=== PATIENT | female | born 1985 | race Caucasian/White ===

== ENCOUNTER 2022-02-19 10:29 | Outpatient (CLI) | payer OTHER, SELFPAY ==
[2022-02-19 11:36] LABS: Hematocrit 31.5 % (37.0-47.0); Hemoglobin 10.2 g/dL (12.0-15.0); Mean Corpuscular HGB Conc 32.4 g/dl (32-36); Mean Corpuscular Hemoglobin 30.1 pg (26-34); Mean Corpuscular Volume 92.9 fl (80-100); Mean Platelet Volume 11.4 fl (7.4-10.4); Platelet Count Result 153 k/mm3 (150-375); Red Blood Count 3.39 M/mm3 (4.2-5.4); Red Cell Distribution Width 13.1 % (11.5-14.5)
[2022-02-19 13:47] LABS: Rapid Plasma Reagin Non-Reactive (NonReactive)
== END 2022-02-19 10:30 | disposition home or self-care (01) ==
LOC: ANHLAB 10:34
PROVIDERS: PCP Obstetrics & Gynecology; Referring Provider Obstetrics & Gynecology; Visit Provider Obstetrics & Gynecology
DX: Z01.818 Encounter for other preprocedural examination (principal)
CPT/HCPCS: 36415; 85027; 86592; 86850; 86900; 86901

== ENCOUNTER 2022-02-20 10:16 | Inpatient (IN) | payer OTHER, SELFPAY ==
--- NOTE | 2022-01-28 15:03 | PC.NURSE ---
verified with OR schedule and patient--C/S on 02/20/22 at 1200 Patient given requisition for lab drawn on 02/19/22
[2022-02-20] VITALS (54 sets, daily range): BP systolic 112–153; BP diastolic 51–97; PULSE 68–129; RESP 13–20; TEMP 36–36.6; O2SAT 97–100; BMI 27.5
--- NOTE | 2022-02-20 10:46 | LDADM ---
This patient, Escobar Avila, was admitted to Labor/Delivery/Recovery 120 on 02/20/22 at 10:16. Plans for labor, pain management and were discussed with patient. Patient/family oriented to hospital policies and general routines including ID bracelet, bed and alarms, visiting hours, pain management, procedures, bathroom and other care routines, personal items, smoking policy, room service/diet and guest tray routines, infant security routines, and visiting hours. Patient/Family are encouraged to report perceived risks to care and to ask questions if they do not understand what they are told or what they should do. See OBIX for further documentation.
[2022-02-20] MEDS: LACTATED RINGERS 1,000 ML 125 ML IV CONT (11:03)
--- NOTE | 2022-02-20 11:28 | P.PNAN_ITS ---
Anes - Initial Pre Proc Eval Procedure: Operation Date: 02/20/22 12:00 Proposed Procedures p Repeat Section - Temo John MD Date/Time: 02/20/22 11:28 Surgeon: Temo John MD Pre Op Diagnosis: c/s Patient Data Age: 36 Gender: F Height: 1.65 m Weight: 75 kg Last Vital Signs Temp 36.6 C 02/20/22 11:04 Pulse 91 02/20/22 11:16 BP 124/56 L 02/20/22 11:16 O2 Del Method Room Air 02/20/22 10:45 Allergies Allergy/AdvReac Type Severity Reaction Status Date / Time No Known Allergies Allergy Verified 01/28/22 14:44 Patient hx anesthesia problems: none Family hx anesthesia problems: none Results Review: All pre-operative results and documents have been reviewed as part of the pre- operative evaluation. FORMERLY [facility], [facility] Surgical History Surgical History (Updated 02/20/22 @ 11:29 by Joshua Cartagena MD) History of section Family History Family History Mother Diabetes type 2, controlled Social History Social History Smoking status: Never smoker Substance use: never Lack of Transportation: No Lack of Food: Never True Current Housing: I Have Housing Concerned About Future Housing: No Difficulty Paying Gas/Electric Bills: No Difficulty Paying for Meds: No Currently Unemployed: No Education: Bachelor's Degree Difficulty w/ Childcare or Family Care: No Spiritual care concerns: No Anes - Eval Final PreProcedure Day of Procedure 02/20/22 11:28 Patient weight: overweight Heart: regular rate and rhythm Lungs: clear to auscultation Airway: Mallampati scale class II Neurological: alert and oriented Last oral intake: >/= 8 hours ASA classification: II Emergent: no Anesthetic plan: proceed Anesthesia type and monitoring: regional spinal and standard monitoring Results Review: All pre-operative results and documents have been reviewed as part of the pre- operative evaluation. Informed Consent: The patient's anesthetic plan and its attendant risks and benefits were discussed with the patient/family/POA. Questions were solicited and answers p rovided to the satisfaction of the patient/family/POA.
--- NOTE | 2022-02-20 12:12 | PM.IMHP ---
H&P: HPI History of Present Illness Date/Time: 02/20/22 12:12 Chief Complaint: Here for repeat c section. Narrative: 36 y/o at 39 1/7 weeks with prior , desiring repeat . GBS pos. Review of Systems Review of Systems: All systems reviewed & are unremarkable except as noted in HPI and below PMFSH Surgical History Surgical History (Updated 02/20/22 @ 12:15 by Temo John MD) History of section Family History Family History Mother Diabetes type 2, controlled Social History Social History Smoking status: Never smoker Substance use: never Lack of Transportation: No Lack of Food: Never True Current Housing: I Have Housing Concerned About Future Housing: No Difficulty Paying Gas/Electric Bills: No Difficulty Paying for Meds: No Currently Unemployed: No Education: Bachelor's Degree Difficulty w/ Childcare or Family Care: No Spiritual care concerns: No Meds Home Medications and Allergies Allergies Allergy/AdvReac Type Severity Reaction Status Date / Time No Known Allergies Allergy Verified 01/28/22 14:44 Vital Signs Vital Signs - 24 hr 02/20/22 10:36 02/20/22 11:01 02/20/22 11:16 Temperature Pulse Rate 96 108 H 91 Blood Pressure 126/94 H 113/97 H 124/56 L Oxygen Delivery 02/20/22 11:04 02/20/22 11:31 02/20/22 11:46 Temperature 36.6 C Pulse Rate 85 87 Blood Pressure 112/51 L 114/71 Oxygen Delivery 02/20/22 10:45 Temperature Pulse Rate Blood Pressure Oxygen Delivery Room Air Exam Const: Orientation/consciousness: patient oriented x3 Other: Well-developed, well-nourished female in no acute distress. Neck: Thyroid: thyroid normal Lymphatic: no lymphadenopathy noted (in neck, axilla or inguinal nodes) Resp: Effort & Inspection: normal respiratory effort Auscultation: clear to auscultation bilaterally Cardio: Rate: regular rate Rhythm: regular rhythm Heart sounds: S1 normal heart sound present and S2 normal heart sound present GI: Other: ABD: Soft, nontender, gravid. FH 36 cm. FHR 150 bpm. : General: Yes no CVA tenderness Other: Cervix closed / 50 Back/Spine/Pelvis: Back: no CVA tenderness Skin: General skin exam: normal color and no rashes or lesions noted Neuro: General: patient oriented x3 Extrem: Other: Extremities: nontender with no edema Psych: Mental Status: mental status grossly normal Affect: normal affect Assessment and Plan Assessment and plan (1) Term : Code(s): Z34.90 - Encounter for supervision of normal , unspecified, unspecified trimester Status: Acute Assessment and Plan: A: IUP at 39 1/7 weeks with prior . P: Offered repeat . She understands risks of surgery to include risks of anesthesia, risks of pain, infection, bleeding, blood products, thromboembolic phenomena and damage to adjacent structures such as bowel, bladder, ureters, blood vessels and nerves. She understands all these risks and elects to proceed with surgery. (2) History of section: Code(s): Z98.891 - History of uterine scar from previous surgery Status: Acute
[2022-02-20] MEDS: ceFAZolin 2 GM/D5W 50 ML 2 GM/50 ML BAG IVPB (12:16)
--- NOTE | 2022-02-20 12:16 | WPDHPUPDATE1 ---
History and Physical Update Update Date/Time: 02/20/22 12:16 History and Physical has been reviewed, including an updated exam of the patient. There are NO changes in the patient's condition. Risks, benefits, and alternatives have been discussed and questions answered. Patient agrees to proceed with procedure.
--- NOTE | 2022-02-20 13:13 | PM.OBPRVD ---
OB - Delivery Note Procedure Delivery date: 02/20/22 Procedure: Procedures Operation Date: 02/20/22 12:00 <No data on this case meets the specified criteria> Repeat low transverse delivery Delivery monitor: External FHT and External Uterine Route of delivery: Specimen: Yes (cord blood) Quantitative Blood Loss (ml): 385 Anesthesia type: Spinal Disposition: PACU Complications: None Narrative: The patient was taken to the operating room where she was prepared and draped in the usual sterile fashion in dorsal supine position with a leftward tilt. She received cefazolin preoperatively. Spinal anesthesia was found to be adequate. A Pfannenstiel skin incision was made along the previous scar line and was carried through to the underlying layer of the fascia. The fascia was incised in the midline and the incision was extended laterally. The fascia was dissected free of the underlying rectus muscles. The rectus muscles were in the midline. The peritoneum was identified, tented up and entered sharply. The peritoneal incision was extended superiorly and inferiorly with good visualization of the bladder. The bladder blade was placed. The vesicouterine peritoneum was identified, tented up and entered sharply. The incision was extended laterally and the bladder flap was developed. The bladder blade was replaced. The uterus was then incised sharply in a transverse fashion along the lower uterine segment. The incision was extended laterally. The infant's head was delivered atraumatically to the sterile field, followed by the body. The nose and mouth were bulb suctioned. After a delay, the cord was clamped and cut. The was handed off the field. Cord blood was collected. The placenta was removed manually and was passed off the field. The uterus was exteriorized and cleared of all clots and debris. The uterine incision was reapproximated using 0 Monocryl in a running, locked fashion. A second, imbricating layer of the same suture was run. Excellent hemostasis resulted as did excellent reapproximation of the normal anatomy. The uterus was returned the abdomen. The pelvis was irrigated copiously with warmed normal saline. The bladder flap was treated with Hemaderm. Rigorous hemostasis was assured. The fascial layer was reapproximated using 0 Vicryl in a running fashion. The skin was closed with a running, subcuticular stitch of 4 0 Vicryl. Dermaflex was applied externally. Sponge, lap, needle and instrument counts were correct. The patient was taken to the recovery room in stable condition. The infant went to the nursery in stable condition. I was present and scrubbed the entire procedure. [place] [facility] Date of : 02/20/22 Time of : 12:44 Weeks of gestation at delivery: 39 gender: Male Weight (pounds): 6 Weight (ounces): 14 presentation: vertex Placenta delivery description: Manual Removal and Normal Configuration Cord Vessel Description: 3 Vessels, Nuchal Cord and Delayed Cord Clamping score one minute: 8 score five minutes: 9
--- NOTE | 2022-02-20 13:16 | PM.OBDSVD ---
DS: Admitting Diagnosis Discharge Date 02/22/22 Admitting Diagnosis IUP at 39 1/7 weeks Prior , desiring repeat DS: Discharge Diagnosis Discharge Diagnosis (1) delivery delivered: Code(s): O82 - Encounter for delivery without indication Status: Acute (2) GBS (group B Streptococcus carrier), +RV culture, currently : Code(s): O99.820 - Streptococcus B carrier state complicating Status: Acute OB - DS: Summary OB Procedures : None OB Procedures Intrapartum: OB Procedures: : None Peripartum Data Procedures: Procedures Operation Date: 02/20/22 12:00 <No data on this case meets the specified criteria> Repeat LTCS Time Spent with Patient Time attestation: Total time spent providing and/or coordinating discharge services: Discharge Plan Discharge Attending physician on discharge: Temo John Discharging Clinician: Temo John Patient Disposition: Home, Self-Care Activity: may shower, may drive after 2 weeks and pelvic rest Diet: regular Wound Care Instructions: incision open to air Discharge Instructions: Education: Mom and Baby Guide Given to: Mother Follow-Up: Call your delivering provider's office for an appointment to be seen in: 4 Weeks Mom and baby should come to the [facility] for the follow-up appointment. Appointment Date/Time: February 23, 2022 at 11:00 am What to expect at your follow-up visit: Blood Pressure Check Physical Assessment Call [phone] if you are unable to keep your appointment time. BREAST CARE: * Wear a snug supportive bra. * For engorgement discomfort: Breast Feeding: * Apply warm moist washcloths * Express milk as needed to relieve engorgement * Wear loose clothing * For sore nipples: * Identify correct latch-on * Apply warm moist washcloths before and after nursing * Air dry nipples after nursing * May apply Lansinoh cream to nipples ABDOMINAL INCISION: (if applicable) * Allow incision to air dry * Do NOT use lotions for powders on your incision * When showering, allow soap and water to run over the incision, but do not wash incision EPISIOTOMY/PERINEAL CARE: * Until bleeding stops, use your mayank bottle after urinating * Change your pad frequently throughout the day * No tub baths until seen by your physician - You may shower ACTIVITY: * Rest as much as possible. * Do not exercise or lift anything heavier than your baby (such as laundry or other children.) * Avoid stairs or driving as much as possible for 2 weeks. * Do not put anything into the vagina. No douching, tampons, or sexual activity until seen by physician. NOTIFY PHYSICIAN IF YOU HAVE ANY QUESTIONS OR IF ANY OF THE FOLLOWING SYMPTOMS OCCUR: * If your incision becomes red, swollen, or more painful than what you have experienced in the hospital. * If your vaginal bleeding becomes foul smelling. * If your vaginal bleeding becomes more heavy than a period or if your bleeding changes from pink to bright red. However, you may pass an occasional walnut-sized clot once or twice for the first week . * If you experience a sharp, shooting pain in your calves. * If you discover a hard, reddened area on your breast or if you experience flu-like symptoms. DIET: * Eat regular, well-balanced meals. * Drink plenty of fluids daily. If , drink to thirst. Call or return if temperature above 100.4? F, increased abdominal pain, increased vaginal bleeding or any new problems. Stand Alone Forms: General Discharge Information Follow-up/Referrals: Temo John MD [Physician] - 4 Weeks Discharge Medications: New ibuprofen 600 mg tablet 600 mg PO Q6H PRN (Reason: cramps) Qty: 30 0RF hydrocodone-acetaminophen 5-325 mg tablet 1 - 2 tablet PO Q6H Qty: 30 0RF fe
[2022-02-20] MEDS: ONDANSETRON INJ 4 MG/2 ML VIAL IV PUSH (14:33)
[2022-02-20] MEDS: SIMETHICONE 80 MG TAB.CHEW (14:33)
[2022-02-20] MEDS: SIMETHICONE 80 MG TAB.CHEW PO (19:15)
[2022-02-20] MEDS: KETOROLAC 30 MG/ML VIAL (*BKC) IV PUSH (19:15)
[2022-02-21 03:40] VITALS: BP 114/55; PULSE 71; RESP 16; TEMP 36.7
[2022-02-21] MEDS: SIMETHICONE 80 MG TAB.CHEW PO ×6 (03:40→22:16)
[2022-02-21] MEDS: KETOROLAC 30 MG/ML VIAL (*BKC) IV PUSH (03:40)
[2022-02-21 04:49] LABS: Basophils Percent Auto 0.2 % (0.2-1.2); Eosinophils Percent Auto 0.1 % (0-4.4); Hematocrit 28.6 % (37.0-47.0); Hemoglobin 9.3 g/dL (12.0-15.0); Immature Granulocyte Absolute 0.14 K/mm3 (0.00-0.031); Immature Granulocyte Percent A 0.9 % (0-0.5); Immature Platelet Fraction Pct 11.7 % (0.9-11.2); Lymphocytes Absolute Auto 0.76 K/mm3 (0.9-3.2); Mean Corpuscular HGB Conc 32.5 g/dl (32-36); Mean Corpuscular Hemoglobin 30.3 pg (26-34); Mean Corpuscular Volume 93.2 fl (80-100); Mean Platelet Volume 11.9 fl (7.4-10.4); Monocytes Percent Auto 6.3 % (2.6-8.5); Neutrophils Absolute Auto 13.3 K/mm3 (1.3-6.7); Neutrophils Percent Auto 87.5 % (45.5-73.1); Platelet Count Result 145 k/mm3 (150-375); Red Blood Count 3.07 M/mm3 (4.2-5.4); Red Cell Distribution Width 13.1 % (11.5-14.5); White Blood Count 15.2 K/mm3 (4.5-10.0)
[2022-02-21 08:15] VITALS: BP 129/70; PULSE 96; RESP 16; TEMP 37.1; O2SAT 100
--- NOTE | 2022-02-21 09:08 | P.PNOB_ITS ---
OB - PN: Subj Subjective Date/time seen: 02/21/22 09:08 Narrative: Pain OK. Tolerating diet. OB - PN: Obj Data Labs 02/21/22 03:49 Labs: Laboratory Results - last 24 hr 02/21/22 03:49 WBC 15.2 H RBC 3.07 L Hgb 9.3 L Hct 28.6 L MCV 93.2 MCH 30.3 MCHC 32.5 RDW 13.1 Plt Count 145 L MPV 11.9 H Immature Gran % (Auto) 0.9 H Neut % (Auto) 87.5 H Lymph % (Auto) 5.0 L [place] % (Auto) 6.3 Eos % (Auto) 0.1 Baso % (Auto) 0.2 Lymph # (Auto) 0.76 L [place] # (Auto) 1.0 H Eos # (Auto) 0.0 Baso # (Auto) 0.0 Abs Immat Gran (auto) 0.14 H Absolute Neuts (auto) 13.3 H Absolute Nucleated RBC 0.0 Nucleated RBC % 0.0 % Immature Plt Fraction 11.7 H OB - PN A/P Plan day: 1 Comments: A: POD#1, doing well. P: She is considering circ - reviewed in detail. Otherwise, routine care. Exam Narrative: AVSS I/O OK ABD soft, nontender, fundus firm. Incision c/d/i. EXT nontender
[2022-02-21] MEDS: POLYSACCHARIDE IRON COMPLEX 150 MG CAPSULE PO ×2 (10:31→17:11)
[2022-02-21] MEDS: MULTIVIT/MIN/PREN/FOL AC/IRON TABLET 1 TAB PO (10:31)
[2022-02-21] MEDS: DOCUSATE SODIUM 100 MG CAPSULE PO ×2 (10:31→17:12)
[2022-02-21] MEDS: LANOLIN (LANSINOH) 7.5 GM CREAM 1 APPLIC TOPICAL (10:32)
[2022-02-21] MEDS: IBUPROFEN 600 MG TABLET PO ×2 (10:32→17:12)
[2022-02-21 11:56] VITALS: BP 109/57; PULSE 72; RESP 16; TEMP 37.4; O2SAT 100
[2022-02-21] MEDS: HYDROcodone/acetaminophen (*CRX) 5-325 MG TABLET 1 TAB PO ×4 (12:13→22:16)
--- NOTE | 2022-02-21 13:31 | WPDANLDNPN2 ---
Anes-Prog Note L&D-Neuraxial Date/Time: 02/21/22 13:31 Patient feedback: Patient satisfied with post-operative pain management.
--- NOTE | 2022-02-21 13:31 | WPDANLDPN2 ---
Anes-Prog Note L&D Date/Time: 02/21/22 13:31 Neuro status: Neuro function grossly intact. Vital Signs: Last Vital Signs Temp 37.4 C 02/21/22 11:56 Pulse 72 02/21/22 11:56 Resp 16 02/21/22 11:56 BP 109/57 L 02/21/22 11:56 Pulse Ox 100 02/21/22 11:56 O2 Del Method Room Air 02/20/22 15:15 Pain score (VAS): 0 I/O: Intake & Output 02/20/22 02/21/22 02/21/22 23:59 07:59 15:59 Intake Total 525 1000 400 Output Total 2000 650 Balance 525 -1000 -250 Patient feedback: Patient satisfied with anesthetic care.
--- NOTE | 2022-02-21 15:52 | PC.NURSE ---
[id number] Introductions were made, then consulted with patient to assess needs related to . Mother led the conversation with her experience feeding her so far. Mother works well with her with encouragement and education. Encouraged understanding of the benefits of skin to skin (unwrapping and placing vertically on her chest), responsive feeding and how to watch for early feeding signs, frequency of feeding on demand about every 8-12 times in 24 hours (every 2-3 hours), milk production, massage touch for stimulating infant to breastfeed and changing positions. Reviewed positioning and ear, shoulder, hip alignment, supporting the breast, asymmetrical latch (off-center), and leading with the chin with a big open side gape. latched effectively, then let the breast go and the latch became shallow in the laid-back, cross cradle and football positioning. Mother was encouraged to practice skin to skin and in a laid-back position. Reviewed giving the infant time to crawl and explore the new world outside of her body. Nipple care reviewed with optimal latch and good positioning. Resources used to facilitate learning were used with the tool. Mother voiced understanding of responsive feedings, stimulating with skin to skin, massage touch, talking to infant to encourage if it has been 2 -3 hours since the start of the last , to call if infant does not latch or there is discomfort with . Reported to the primary RN. Primary RN reported that infant latched well around 1100 with no pain and no misshaped nipple.
[2022-02-21 19:40] VITALS: BP 103/60; PULSE 68; RESP 16; TEMP 37
[2022-02-22] MEDS: HYDROcodone/acetaminophen (*CRX) 5-325 MG TABLET 1 TAB PO ×2 (03:15→10:37)
[2022-02-22] MEDS: SIMETHICONE 80 MG TAB.CHEW PO ×2 (03:15→10:36)
[2022-02-22] MEDS: IBUPROFEN 600 MG TABLET PO ×2 (03:15→10:36)
[2022-02-22 08:20] VITALS: BP 111/55; PULSE 70; RESP 18; TEMP 37.2; O2SAT 99
--- NOTE | 2022-02-22 09:00 | PM.OBPNVD ---
OB - PN: Subj Subjective Date/time seen: 02/22/22 09:00 Narrative: Pain OK. Tolerating diet. Would like to go home. OB - PN: Obj Data Labs 02/21/22 03:49 OB - PN A/P Plan day: 2 Comments: A: POD#2, doing well. P: Home to f/u 4 weeks. Exam Narrative: AVSS ABD soft, nontender, fundus firm. Incision c/d/i. EXT nontender
[2022-02-22 10:30] VITALS: PULSE 70; RESP 18; O2SAT 99
[2022-02-22] MEDS: MULTIVIT/MIN/PREN/FOL AC/IRON TABLET 1 TAB PO (10:36)
[2022-02-22] MEDS: DOCUSATE SODIUM 100 MG CAPSULE PO (10:37)
[2022-02-22] MEDS: POLYSACCHARIDE IRON COMPLEX 150 MG CAPSULE PO (10:37)
--- NOTE | 2022-02-22 10:43 | PC.NURSE ---
[id number] Mother verbalizes she is able to independently latch with appropriate positioning/alignment. She nipple discomfort and is responsively . is currently meeting outcomes for weight, output, jaundice and feeding frequencies of 8-12 times in 24 hours. Mother declines any additional assistance/education at this time. Mother is encouraged to call for assistance if her doesn?t latch or there is discomfort with latching. Mother voiced understanding of information shared and mom and baby guide reviewed for additional resource information and mother has a resource as a friend.
== END 2022-02-22 12:40 | disposition home or self-care (01) | DRG 788 ==
LOC: ANHLDR 13:18 → ANHOB2 15:41
PROVIDERS: Admitting Provider Obstetrics & Gynecology; Visit Provider Obstetrics & Gynecology
PROC: 10D00Z1 Extraction of Products of Conception, Low, Open Approach (ICD-10-PCS; CPT 59514; principal; 2022-02-20 12:00)
DX: O34.211 Maternal care for low transverse scar from previous cesarean delivery (principal); Z37.0 Single live birth; Z3A.39 39 weeks gestation of pregnancy; O99.824 Streptococcus B carrier state complicating childbirth; O69.89X0 Labor and delivery complicated by other cord complications, not applicable or unspecified
CPT/HCPCS: 36415; 85025; 85055; A9270; J0690; J1885; J2274; J2370; J2405; J2590; J7120